=== PATIENT | female | born 1980 | race Native Hawaiian/Other Pacific Islander ===

== ENCOUNTER 2022-05-15 14:58 | Outpatient (CLI) | payer OTHER ==
[~2022-05-15 14:58] MED LIST: CLON1TAB18 PO; LOSA50TA PO; WELLBUTRIN100 M1 PO
== END 2022-05-15 19:12 | disposition home or self-care (01) ==
LOC: LABW 14:58
PROVIDERS: ATTEND Internal Medicine Cardiovascular Disease
DX: Z95.2 Presence of prosthetic heart valve (principal); Z79.01 Long term (current) use of anticoagulants
CPT/HCPCS: 36415; 85610

== ENCOUNTER 2022-06-17 14:04 | Outpatient (CLI) | payer OTHER | END 2022-06-17 18:59 | disposition home or self-care (01) | LOC: LABW 14:04 | PROVIDERS: ATTEND Internal Medicine Cardiovascular Disease | DX: Z79.01 Long term (current) use of anticoagulants (principal); Z95.2 Presence of prosthetic heart valve | CPT/HCPCS: 36415; 85610 ==

== ENCOUNTER 2022-07-09 16:03 | Outpatient (CLI) | payer OTHER | END 2022-07-09 19:00 | LOC: LAB 16:03 | PROVIDERS: ATTEND Internal Medicine Cardiovascular Disease | DX: Z95.2 Presence of prosthetic heart valve (principal); Z79.01 Long term (current) use of anticoagulants | CPT/HCPCS: 36415; 85610 ==

== ENCOUNTER 2022-07-27 14:11 | Outpatient (CLI) | payer OTHER | END 2022-07-27 19:01 | disposition home or self-care (01) | LOC: LABW 14:11 | PROVIDERS: ATTEND Internal Medicine Cardiovascular Disease | DX: Z95.2 Presence of prosthetic heart valve (principal); Z79.01 Long term (current) use of anticoagulants | CPT/HCPCS: 36415; 85610 ==

== ENCOUNTER 2022-08-07 14:04 | Outpatient (CLI) | payer OTHER | END 2022-08-07 19:43 | disposition home or self-care (01) | LOC: LABW 14:04 | PROVIDERS: ATTEND Internal Medicine Cardiovascular Disease | DX: Z95.2 Presence of prosthetic heart valve (principal); Z79.01 Long term (current) use of anticoagulants | CPT/HCPCS: 36415; 85610 ==

== ENCOUNTER 2022-09-03 13:55 | Outpatient (CLI) | payer OTHER | END 2022-09-03 19:08 | disposition home or self-care (01) | LOC: LABW 13:55 | PROVIDERS: ATTEND Internal Medicine Cardiovascular Disease | DX: Z95.2 Presence of prosthetic heart valve (principal); Z79.01 Long term (current) use of anticoagulants | CPT/HCPCS: 36415; 85610 ==

== ENCOUNTER 2022-09-22 14:38 | Outpatient (CLI) | payer OTHER | END 2022-09-22 19:08 | disposition home or self-care (01) | LOC: LABW 14:38 | PROVIDERS: ATTEND Internal Medicine Cardiovascular Disease | DX: Z95.2 Presence of prosthetic heart valve (principal); Z79.01 Long term (current) use of anticoagulants | CPT/HCPCS: 36415; 85610 ==

== ENCOUNTER 2022-10-02 14:07 | Outpatient (CLI) | payer OTHER | END 2022-10-02 19:02 | disposition home or self-care (01) | LOC: LABW 14:07 | PROVIDERS: ATTEND Internal Medicine Cardiovascular Disease | DX: Z95.2 Presence of prosthetic heart valve (principal); Z79.01 Long term (current) use of anticoagulants | CPT/HCPCS: 36415; 85610 ==

== ENCOUNTER 2022-10-09 11:11 | Outpatient (CLI) | payer OTHER | END 2022-10-09 19:22 | disposition home or self-care (01) | LOC: LABW 11:11 | PROVIDERS: ATTEND Internal Medicine Cardiovascular Disease | DX: Z95.2 Presence of prosthetic heart valve (principal); Z79.01 Long term (current) use of anticoagulants | CPT/HCPCS: 36415; 85610 ==

== ENCOUNTER 2022-11-17 14:52 | Outpatient (CLI) | payer OTHER | END 2022-11-17 19:17 | disposition home or self-care (01) | LOC: LABW 14:52 | PROVIDERS: ATTEND Internal Medicine Cardiovascular Disease | DX: Z95.2 Presence of prosthetic heart valve (principal); Z79.01 Long term (current) use of anticoagulants | CPT/HCPCS: 36415; 85610 ==

== ENCOUNTER 2022-12-18 14:16 | Outpatient (CLI) | payer OTHER | END 2022-12-18 20:27 | disposition home or self-care (01) | LOC: LABW 14:16 | PROVIDERS: ATTEND Internal Medicine Cardiovascular Disease | DX: Z95.2 Presence of prosthetic heart valve (principal); Z79.01 Long term (current) use of anticoagulants | CPT/HCPCS: 36415; 85610 ==

== ENCOUNTER 2023-01-08 14:35 | Outpatient (CLI) | payer OTHER | END 2023-01-08 19:11 | disposition home or self-care (01) | LOC: LABW 14:35 | PROVIDERS: ATTEND Internal Medicine Cardiovascular Disease | DX: Z95.2 Presence of prosthetic heart valve (principal); Z79.01 Long term (current) use of anticoagulants | CPT/HCPCS: 85610 ==

== ENCOUNTER 2023-02-12 14:37 | Outpatient (CLI) | payer OTHER | END 2023-02-12 19:53 | disposition home or self-care (01) | LOC: LABW 14:37 | PROVIDERS: ATTEND Internal Medicine Cardiovascular Disease | DX: Z95.2 Presence of prosthetic heart valve (principal); Z79.01 Long term (current) use of anticoagulants | CPT/HCPCS: 36415; 85610 ==